=== PATIENT | male | born 1935 | race Caucasian/White ===

== ENCOUNTER 2018-10-24 22:34 | Inpatient (IN) | payer MEDICARE, BC ==
[~2018-10-24] VITALS: Ht 177.8 cm; Wt 69.4 kg
[2018-10-24] MEDS ORDERED: SUCR1TAB31 PO (22:49)
[2018-10-24] MEDS ORDERED: FERR324T PO (22:49)
[2018-10-24] MEDS ORDERED: TAMS-3 PO (22:49)
[2018-10-24] MEDS ORDERED: CHOL200010 PO (22:49)
[2018-10-24] MEDS ORDERED: AMLO10TA6 PO (22:49)
[2018-10-24] MEDS ORDERED: TEMA15CA PO (22:49)
[2018-10-24] MEDS ORDERED: MEGE400O4 PO (22:49)
[2018-10-24] MEDS ORDERED: MIDO2.5T PO (22:49)
[2018-10-24] MEDS ORDERED: FLUO40CA8 PO (22:49)
[2018-10-24] MEDS ORDERED: OMEP40CA37 PO (22:49)
[2018-10-24] MEDS ORDERED: LORAZEPAM 0.5 MG TABLET PO PRN (23:45)
[2018-10-24] MEDS ORDERED: MAGNESIUM HYDROXIDE 30 ML LIQUID UDC PO PRN (23:45)
[2018-10-24] MEDS ORDERED: MAG HYDROX/AL HYDROX/SIMETH 30 ML LIQUID UDC PO PRN (23:45)
[2018-10-25 00:13] VITALS: BP 126/69
[2018-10-25 07:30] VITALS: BP 166/68
[2018-10-25] MEDS ORDERED: MIDODRINE HCL 2.5 MG TABLET PO PRN (12:30)
[2018-10-25] MEDS: MEGESTROL ACETATE 400 MG/10 ML LIQUID UDC PO SCH ×2 (12:30→17:00)
[2018-10-25] MEDS ORDERED: Medication Not On Formulary EA (Omeprazole 40 MG) PO SCH (12:30)
[2018-10-25] MEDS: AMLODIPINE 10 MG TABLET PO SCH (13:26)
[2018-10-25] MEDS: CHOLECALCIFEROL 1,000 UNIT TABLET PO SCH (13:26)
[2018-10-25] MEDS: PANTOPRAZOLE SODIUM 40 MG TABLET.DR PO SCH (13:27)
[2018-10-25] MEDS: TAMSULOSIN HCL 0.4 MG CAP.SR.24H PO SCH (13:27)
[2018-10-25] MEDS: FERROUS GLUCONATE 324 MG TABLET PO SCH ×2 (14:41→17:53)
[2018-10-25] MEDS: SUCRALFATE 1 G TABLET PO SCH ×3 (14:50→20:45)
[2018-10-25] MEDS: VENLAFAXINE XR 37.5 MG CAP.SR.24H PO SCH (15:04)
[2018-10-25 16:08] VITALS: BP 134/78
[2018-10-25 19:59] VITALS: BP 131/53
[2018-10-25] MEDS: TRAZODONE 50 MG TABLET PO SCH (20:45)
[2018-10-26] MEDS: SUCRALFATE 1 G TABLET PO SCH ×4 (06:46→20:03)
[2018-10-26] MEDS: PANTOPRAZOLE SODIUM 40 MG TABLET.DR PO SCH (06:46)
[2018-10-26 07:30] VITALS: BP 137/54
[2018-10-26 07:50] LABS: CARBON DIOXIDE 29 mmol/L (21-32); CHLORIDE 98 mmol/L (98-107); GLUCOSE 105 mg/dL (74-106); PHOSPHOROUS 3.3 mg/dL (2.5-4.9); POTASSIUM 4.2 mmol/L (3.5-5.1); UREA NITROGEN, BLOOD 21 mg/dL (7-18)
[2018-10-26 07:51] LABS: BASOPHILS % (AUTO) 0.4 % (0.0-2.0); EOSINOPHILS # (AUTO) 0.2 K/uL (0.0-0.7); EOSINOPHILS % (AUTO) 2.7 % (0.0-7.0); HEMATOCRIT 36.4 % (36.7-47.1); HEMOGLOBIN 12.2 g/dL (12.5-16.3); LYMPHOCYTES % (AUTO) 12.4 % (20.5-51.5); MEAN CORPUSCULAR HEMOGLOBIN 31.1 uug (23.8-33.4); MEAN CORPUSCULAR HGB CONC 34 g/dL (32.5-36.3); MEAN CORPUSCULAR VOLUME 92.4 fL (73.0-96.2); MONOCYTES # (AUTO) 0.7 K/uL (2.0-10.0); MONOCYTES % (AUTO) 8.6 % (0.0-11.0); NEUTROPHILS # (AUTO) 6.2 K/uL (1.8-8.9); NEUTROPHILS % (AUTO) 75.9 % (38.5-71.5); PLATELET COUNT (AUTO) 273 K/uL (152-348); RED BLOOD CELL COUNT(AUTO) 3.93 MIL/uL (4.06-5.63); WHITE BLOOD COUNT (AUTO) 8.2 K/uL (3.6-10.2)
[2018-10-26] MEDS: FERROUS GLUCONATE 324 MG TABLET PO SCH ×2 (09:06→18:10)
[2018-10-26] MEDS: TAMSULOSIN HCL 0.4 MG CAP.SR.24H PO SCH (09:06)
[2018-10-26] MEDS: CHOLECALCIFEROL 1,000 UNIT TABLET PO SCH (09:06)
[2018-10-26] MEDS: VENLAFAXINE XR 37.5 MG CAP.SR.24H PO SCH (09:06)
[2018-10-26] MEDS: MEGESTROL ACETATE 400 MG/10 ML LIQUID UDC PO SCH ×2 (09:07→18:10)
[2018-10-26] MEDS: AMLODIPINE 10 MG TABLET PO SCH (09:08)
[2018-10-26 16:00] VITALS: BP 127/55
[2018-10-26 19:48] VITALS: BP 145/50
[2018-10-26] MEDS: TRAZODONE 50 MG TABLET PO SCH (20:03)
[2018-10-27 07:30] VITALS: BP 136/58
[2018-10-27] MEDS: TAMSULOSIN HCL 0.4 MG CAP.SR.24H PO SCH (08:12)
[2018-10-27] MEDS: CHOLECALCIFEROL 1,000 UNIT TABLET PO SCH (08:13)
[2018-10-27] MEDS: VENLAFAXINE XR 37.5 MG CAP.SR.24H PO SCH (08:13)
[2018-10-27] MEDS: PANTOPRAZOLE SODIUM 40 MG TABLET.DR PO SCH (08:13)
[2018-10-27] MEDS: AMLODIPINE 10 MG TABLET PO SCH (08:13)
[2018-10-27] MEDS: FERROUS GLUCONATE 324 MG TABLET PO SCH ×2 (08:13→16:40)
[2018-10-27] MEDS: SUCRALFATE 1 G TABLET PO SCH ×4 (08:14→20:17)
[2018-10-27] MEDS: MEGESTROL ACETATE 400 MG/10 ML LIQUID UDC PO SCH ×2 (08:20→16:50)
[2018-10-27 16:40] VITALS: BP 133/58
[2018-10-27 20:08] VITALS: BP 125/72
[2018-10-27] MEDS: TRAZODONE 50 MG TABLET PO SCH (20:16)
[2018-10-27] MEDS: ACETAMINOPHEN 325 MG TABLET PO PRN (20:28)
[2018-10-28] MEDS: SUCRALFATE 1 G TABLET PO SCH ×4 (06:40→20:14)
[2018-10-28] MEDS: PANTOPRAZOLE SODIUM 40 MG TABLET.DR PO SCH (06:40)
[2018-10-28 07:30] VITALS: BP 140/62
[2018-10-28] MEDS: FERROUS GLUCONATE 324 MG TABLET PO SCH ×2 (08:43→16:54)
[2018-10-28] MEDS: VENLAFAXINE XR 75 MG CAP.SR.24H PO SCH (08:43)
[2018-10-28] MEDS: AMLODIPINE 10 MG TABLET PO SCH (08:43)
[2018-10-28] MEDS: CHOLECALCIFEROL 1,000 UNIT TABLET PO SCH (08:43)
[2018-10-28] MEDS: TAMSULOSIN HCL 0.4 MG CAP.SR.24H PO SCH (08:43)
[2018-10-28] MEDS: MEGESTROL ACETATE 400 MG/10 ML LIQUID UDC PO SCH ×2 (08:44→17:00)
[2018-10-28 16:08] VITALS: BP 121/46
[2018-10-28] MEDS: ACETAMINOPHEN 325 MG TABLET PO PRN (18:24)
[2018-10-28 19:54] VITALS: BP 119/48
[2018-10-28] MEDS: TRAZODONE 50 MG TABLET PO SCH (20:14)
[2018-10-29] MEDS: ZOLPIDEM 5 MG TABLET PO PRN (00:26)
[2018-10-29] MEDS: PANTOPRAZOLE SODIUM 40 MG TABLET.DR PO SCH (06:31)
[2018-10-29 07:30] VITALS: BP 134/65
[2018-10-29] MEDS: SUCRALFATE 1 G TABLET PO SCH ×4 (07:56→20:11)
[2018-10-29] MEDS: VENLAFAXINE XR 75 MG CAP.SR.24H PO SCH (08:23)
[2018-10-29] MEDS: CHOLECALCIFEROL 1,000 UNIT TABLET PO SCH (08:23)
[2018-10-29] MEDS: TAMSULOSIN HCL 0.4 MG CAP.SR.24H PO SCH (08:23)
[2018-10-29] MEDS: AMLODIPINE 10 MG TABLET PO SCH (08:24)
[2018-10-29] MEDS: FERROUS GLUCONATE 324 MG TABLET PO SCH ×2 (08:24→17:00)
[2018-10-29] MEDS: MEGESTROL ACETATE 400 MG/10 ML LIQUID UDC PO SCH ×2 (08:25→17:00)
[2018-10-29 16:00] VITALS: BP 122/78
[2018-10-29] MEDS: TRAZODONE 50 MG TABLET PO SCH (20:11)
[2018-10-29 20:28] VITALS: BP 126/61
[2018-10-30] MEDS: PANTOPRAZOLE SODIUM 40 MG TABLET.DR PO SCH (06:59)
[2018-10-30] MEDS: SUCRALFATE 1 G TABLET PO SCH ×4 (06:59→21:23)
[2018-10-30 07:30] VITALS: BP 107/64
[2018-10-30] MEDS: CHOLECALCIFEROL 1,000 UNIT TABLET PO SCH (08:16)
[2018-10-30] MEDS: FERROUS GLUCONATE 324 MG TABLET PO SCH ×2 (08:16→16:24)
[2018-10-30] MEDS: AMLODIPINE 10 MG TABLET PO SCH (08:16)
[2018-10-30] MEDS: VENLAFAXINE XR 75 MG CAP.SR.24H PO SCH (08:16)
[2018-10-30] MEDS: TAMSULOSIN HCL 0.4 MG CAP.SR.24H PO SCH (08:16)
[2018-10-30] MEDS: MEGESTROL ACETATE 400 MG/10 ML LIQUID UDC PO SCH ×2 (08:22→16:24)
[2018-10-30 16:00] VITALS: BP 128/52
[2018-10-30 20:27] VITALS: BP 124/51
[2018-10-30] MEDS: TRAZODONE 50 MG TABLET PO SCH (21:23)
[2018-10-31] MEDS: PANTOPRAZOLE SODIUM 40 MG TABLET.DR PO SCH (06:36)
[2018-10-31] MEDS: SUCRALFATE 1 G TABLET PO SCH ×4 (06:36→20:33)
[2018-10-31 07:30] VITALS: BP 124/53
[2018-10-31] MEDS: CHOLECALCIFEROL 1,000 UNIT TABLET PO SCH (08:09)
[2018-10-31] MEDS: FERROUS GLUCONATE 324 MG TABLET PO SCH ×2 (08:09→16:06)
[2018-10-31] MEDS: TAMSULOSIN HCL 0.4 MG CAP.SR.24H PO SCH (08:10)
[2018-10-31] MEDS: VENLAFAXINE XR 75 MG CAP.SR.24H PO SCH (08:10)
[2018-10-31] MEDS: MEGESTROL ACETATE 400 MG/10 ML LIQUID UDC PO SCH ×2 (08:10→16:06)
[2018-10-31] MEDS: AMLODIPINE 10 MG TABLET PO SCH (08:10)
[2018-10-31 09:08] VITALS: BP 124/53
[2018-10-31 16:14] VITALS: BP 131/55
[2018-10-31 20:14] VITALS: BP 159/56
[2018-10-31] MEDS: TRAZODONE 50 MG TABLET PO SCH (20:33)
[2018-11-01] MEDS: SUCRALFATE 1 G TABLET PO SCH ×4 (06:42→20:12)
[2018-11-01] MEDS: PANTOPRAZOLE SODIUM 40 MG TABLET.DR PO SCH (06:42)
[2018-11-01 07:30] VITALS: BP 126/54
[2018-11-01] MEDS: TAMSULOSIN HCL 0.4 MG CAP.SR.24H PO SCH (08:21)
[2018-11-01] MEDS: CHOLECALCIFEROL 1,000 UNIT TABLET PO SCH (08:21)
[2018-11-01] MEDS: VENLAFAXINE XR 75 MG CAP.SR.24H PO SCH (08:21)
[2018-11-01] MEDS: AMLODIPINE 10 MG TABLET PO SCH (08:22)
[2018-11-01] MEDS: MEGESTROL ACETATE 400 MG/10 ML LIQUID UDC PO SCH ×2 (08:22→16:04)
[2018-11-01] MEDS: FERROUS GLUCONATE 324 MG TABLET PO SCH ×2 (08:23→16:04)
[2018-11-01 16:00] VITALS: BP 127/49
[2018-11-01 20:00] VITALS: BP 121/58
[2018-11-01] MEDS: TRAZODONE 50 MG TABLET PO SCH (20:11)
[2018-11-01 20:21] VITALS: BP 121/58
[2018-11-02] MEDS: ZOLPIDEM 5 MG TABLET PO PRN ×2 (00:53→22:47)
[2018-11-02 07:30] VITALS: BP 132/55
[2018-11-02] MEDS: SUCRALFATE 1 G TABLET PO SCH ×4 (07:30→20:06)
[2018-11-02 08:02] LABS: BASOPHILS % (AUTO) 0.5 % (0.0-2.0); EOSINOPHILS # (AUTO) 0.2 K/uL (0.0-0.7); EOSINOPHILS % (AUTO) 3.2 % (0.0-7.0); HEMOGLOBIN 10.9 g/dL (12.5-16.3); LYMPHOCYTES # (AUTO) 0.9 K/uL (20.0-40.0); LYMPHOCYTES % (AUTO) 12.5 % (20.5-51.5); MEAN CORPUSCULAR HEMOGLOBIN 31.4 uug (23.8-33.4); MEAN CORPUSCULAR HGB CONC 34 g/dL (32.5-36.3); MEAN CORPUSCULAR VOLUME 92.1 fL (73.0-96.2); MONOCYTES # (AUTO) 0.7 K/uL (2.0-10.0); MONOCYTES % (AUTO) 9.2 % (0.0-11.0); NEUTROPHILS # (AUTO) 5.7 K/uL (1.8-8.9); NEUTROPHILS % (AUTO) 74.6 % (38.5-71.5); PLATELET COUNT (AUTO) 293 K/uL (152-348); RED BLOOD CELL COUNT(AUTO) 3.47 MIL/uL (4.06-5.63); WHITE BLOOD COUNT (AUTO) 7.6 K/uL (3.6-10.2)
[2018-11-02 08:16] LABS: CARBON DIOXIDE 26 mmol/L (21-32); CHLORIDE 104 mmol/L (98-107); GLUCOSE 90 mg/dL (74-106); MAGNESIUM 1.9 mg/dL (1.8-2.4); PHOSPHOROUS 3.8 mg/dL (2.5-4.9); UREA NITROGEN, BLOOD 29 mg/dL (7-18)
[2018-11-02] MEDS: VENLAFAXINE XR 75 MG CAP.SR.24H PO SCH (08:27)
[2018-11-02] MEDS: AMLODIPINE 10 MG TABLET PO SCH (08:27)
[2018-11-02] MEDS: FERROUS GLUCONATE 324 MG TABLET PO SCH ×2 (08:27→16:45)
[2018-11-02] MEDS: CHOLECALCIFEROL 1,000 UNIT TABLET PO SCH (08:27)
[2018-11-02] MEDS: TAMSULOSIN HCL 0.4 MG CAP.SR.24H PO SCH (08:27)
[2018-11-02] MEDS: PANTOPRAZOLE SODIUM 40 MG TABLET.DR PO SCH (08:28)
[2018-11-02] MEDS: MEGESTROL ACETATE 400 MG/10 ML LIQUID UDC PO SCH ×2 (08:33→16:49)
[2018-11-02 15:03] VITALS: BP 137/49
[2018-11-02] MEDS: TRAZODONE 50 MG TABLET PO SCH (20:06)
[2018-11-02 20:43] VITALS: BP 123/51
[2018-11-02] MEDS ORDERED: ATORVASTATIN 10 MG TABLET PO SCH (21:00)
[2018-11-03] MEDS: PANTOPRAZOLE SODIUM 40 MG TABLET.DR PO SCH (06:38)
[2018-11-03] MEDS: SUCRALFATE 1 G TABLET PO SCH ×2 (06:38→11:08)
[2018-11-03 07:30] VITALS: BP 135/56
[2018-11-03] MEDS: VENLAFAXINE XR 75 MG CAP.SR.24H PO SCH (08:12)
[2018-11-03] MEDS: FERROUS GLUCONATE 324 MG TABLET PO SCH (08:12)
[2018-11-03 08:13] VITALS: BP 135/56
[2018-11-03] MEDS: TAMSULOSIN HCL 0.4 MG CAP.SR.24H PO SCH (08:13)
[2018-11-03] MEDS: CHOLECALCIFEROL 1,000 UNIT TABLET PO SCH (08:13)
[2018-11-03] MEDS: AMLODIPINE 10 MG TABLET PO SCH (08:13)
[2018-11-03] MEDS: MEGESTROL ACETATE 400 MG/10 ML LIQUID UDC PO SCH (08:16)
== END 2018-11-03 11:20 | disposition home or self-care (01) | DRG 885 ==
LOC: ER 22:37 → GPS 23:00
PROVIDERS: ADMIT Psychiatry & Neurology Psychiatry; ATTEND Internal Medicine
DX: F32.2 Major depressive disorder, single episode, severe without psychotic features (principal); E87.1 Hypo-osmolality and hyponatremia; J44.9 Chronic obstructive pulmonary disease, unspecified; I10 Essential (primary) hypertension; T40.2X2D Poisoning by other opioids, intentional self-harm, subsequent encounter; Z95.0 Presence of cardiac pacemaker; N40.0 Benign prostatic hyperplasia without lower urinary tract symptoms; Z90.49 Acquired absence of other specified parts of digestive tract; E78.5 Hyperlipidemia, unspecified; D63.8 Anemia in other chronic diseases classified elsewhere; R63.6 Underweight; M17.0 Bilateral primary osteoarthritis of knee; G89.29 Other chronic pain
CPT/HCPCS: 36415; 83735; 84100; 85025; A4663; J8999